=== PATIENT | female | born 1945 | race Caucasian/White ===

== ENCOUNTER 2021-08-03 15:09 | Emergency (ER) | payer MEDICARE ==
[~2021-08-03] VITALS: Ht 170.2 cm; Wt 70.3 kg
[2021-08-03 15:30] VITALS: BP 143/64
[2021-08-03] MEDS ORDERED: D-ME1POW16 PO (16:58)
== END 2021-08-03 17:33 | disposition home or self-care (01) ==
LOC: EDH 15:09
DX: J02.9 Acute pharyngitis, unspecified (principal); Z20.822 Contact with and (suspected) exposure to COVID-19; E11.9 Type 2 diabetes mellitus without complications; E78.00 Pure hypercholesterolemia, unspecified; I10 Essential (primary) hypertension
CPT/HCPCS: 87635; 87880; 99283; C9803